=== PATIENT | female | born 1945 | race Caucasian/White ===

== ENCOUNTER 2017-04-15 11:41 | Outpatient (CLI) | payer MEDICARE | END 2017-04-15 11:42 | disposition home or self-care (01) | LOC: LAB.WCP 11:41 | PROVIDERS: ATTEND Family Medicine | DX: R60.9 Edema, unspecified (principal); I48.0 Paroxysmal atrial fibrillation; C90.00 Multiple myeloma not having achieved remission; D64.9 Anemia, unspecified; N28.9 Disorder of kidney and ureter, unspecified; E03.9 Hypothyroidism, unspecified | CPT/HCPCS: 36415; 84443 ==

== ENCOUNTER 2017-07-02 14:57 | Emergency (ER) | payer MEDICARE ==
[2017-07-02] MEDS ORDERED: MORPHINE 2 MG/ML SYRINGE IVP STA (15:31)
[2017-07-02] MEDS ORDERED: diazePAM INJ 5 MG/ML SYRINGE IVP STA (15:31)
--- NOTE | 2017-07-02 15:32 | ED Physician Documentation ---
PD HPI CHEST PAIN - Stated complaint Stated Complaint: R SIDE HEAD/NECK PX - Chief complaint Chief Complaint: Cardiac - History obtained from History obtained from: Patient, Family () - History of Present Illness Timing - onset: Other (71-year-old woman under maintenance therapy for history of multiple myeloma, also a history of mastocytosis well-controlled with antihistamines at night. Yesterday after weeding in the garden for about an hour she developed some upper back pain which overnight went up into her neck and she developed pain with turning of her head. It became worse and she started to worry about a cardiac etiology. There is no associated chest pain, trouble breathing, nausea, or sweats. No pedal edema, calf pain, or recent travel.) Review of Systems Ten Systems: 10 systems reviewed and negative Constitutional: reports: Myalgias. 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 Neuro: Other HEENT: Other - Present Medications Home Medications: Ambulatory Orders Medication Instructions Recorded Confirmed Ascorbic Acid [Vitamin C] 500 mg PO DAILY 12/27/12 07/02/17 Aspirin [Aspir 81] 81 mg PO DAILY 12/27/12 07/02/17 Cetirizine HCl [Zyrtec] 10 mg PO DAILY PRN 12/27/12 07/02/17 Cholecalciferol (Vitamin D3) 1,000 unit PO DAILY 12/27/12 07/02/17 [Vitamin D] Levothyroxine Sodium [Synthroid] 12 mcg PO DAILY 12/27/12 07/02/17 Montelukast Sodium [Singulair] 10 mg PO DAILY 12/27/12 07/02/17 Ranitidine HCl [Zantac] 150 mg PO DAILY 12/27/12 07/02/17 Biotin 5,000 mg PO DAILY 01/05/13 07/02/17 Calcium Citrate 1,000 mg PO DAILY 01/05/13 07/02/17 Lenalidomide [Revlimid] 15 mg PO DAILY 06/16/14 07/02/17 Niacin 100 mg PO DAILY 11/21/14 07/02/17 oxyCODONE ER [OxyCONTIN] 10 mg PO DAILY PRN 01/16/15 07/02/17 Pyridoxine [Vitamin B-6] 100 mg PO DAILY 03/13/15 07/02/17 Citalopram [CeleXA] 1 tab PO DAILY 07/10/15 07/02/17 Cyclobenzaprine [Flexeril] 10 mg PO TID PRN #20 tablet 07/02/17 oxyCODONE [Roxicodone] 5 mg PO Q4-6H PRN #15 tablet 07/02/17 - Allergies Allergies/Adverse Reactions: Allergies Allergy/AdvReac Type Severity Reaction Status Date / Time No Known Drug Allergies Allergy Verified 07/02/17 15:08 - Social History Smoking Status: Never smoker PD ED PE NORMAL - Vitals Vital signs reviewed: Yes - General General: Alert and oriented X 3, Other (Slightly anxious but not in pain) - HEENT HEENT: PERRL, EOMI - Neck Neck: Other (Distinct tenderness to the paracervical musculature and difficulty with rotation of the neck, but not flexion or extension.) - Cardiac Cardiac: RRR, No murmur - Respiratory Respiratory: No respiratory distress, Clear bilaterally - Abdomen Abdomen: Soft, Non tender - Derm Derm: Normal color, Warm and dry - Extremities Extremities: No edema, No calf tenderness / cord - Neuro Neuro: Alert and oriented X 3, Normal speech - Psych Psych: Normal mood, Normal affect Results - Vitals Vitals: Vital Signs - 24 hr 07/02/17 07/02/17 15:05 16:47 Temperature 37.3 C Heart Rate 81 71 Respiratory 18 18 Rate Blood Pressure 152/72 H 153/74 H O2 Saturation 95 99 Oxygen O2 Source Room air - EKG (time done) 1518 Rate: Rate (enter#) (81) Rhythm: NSR [place]: Normal Intervals: Normal HI QRS: Normal Ischemia: Normal ST segments Computer interpretation: Agree with computer - Labs Labs: Laboratory Tests 07/02/17 07/02/17 07/02/17 15:36 15:36 15:36 WBC 6.0 RBC 4.24 Hgb 12.9 Hct 38.1 MCV 89.9 MCH 30.3 MCHC 33.7 RDW 15.8 H Plt Count 133 MPV 9.6 Neut # 4.4 Lymph # 0.8 L [place] # 0.7 Eos # 0.0 Baso # 0.0 Absolute Nucleated RBC 0.00 Nucleated RBC % 0.0 Sodium 137 Potassium 3.7 Chloride 102 Carbon Dioxide 26 Anion Gap 9.0 BUN 14 Creatinine 1.0 Estimated GFR (MDRD) 54 L Glucose 114 H Calcium 8.8 Total Bilirubin 0.4 AST 20 ALT 21 Alkaline Phosphatase 60 Troponin I < 0.04 Total Protein 7.0 Albumin 4.0 Globulin 3.0 Albumin/Globulin Ratio 1.3 Lipase 18 L - Rads (name of study) CT Chest Angio Radiology: EMP read contemporaneously (Negative with the exception of likely atelectasis and chronic old fractures of T11 and L1.) PD MEDICAL DECISION MAKING - ED course ED course: 71-year-old woman with upper back and neck pain, most consistent with a muscular skeletal etiology which she is concerned for vascular issue, her EKG is nonischemic and her troponin is negative. This was followed by a CT pulmonary angiogram given the history of cancer, this was also negative for acute disease. Departure - Departure Disposition: 01 Home, Self Care Clinical Impression: Atypical chest pain, Upper back pain Condition: Good Record reviewed to determine appropriate education?: Yes Instructions: ED Neck Back Pain General Prescriptions: Cyclobenzaprine [Flexeril] 10 mg PO TID PRN #20 tablet PRN Reason: Spasms oxyCODONE [Roxicodone] 5 mg PO Q4-6H PRN #15 tablet PRN Reason: Pain Comments: Call your doctor to arrange a follow-up appointment, make the next available appointment. In the interim, return anytime if worse or if new symptoms develop. Your blood pressure was elevated today on check into the emergency department. This does not mean that you have hypertension, it is a common phenomenon to come to the emergency department and have elevated blood pressure. I recommend that you see your primary care physician within the week to have it rechecked when you are feeling better. Do not drink or drive while taking narcotic pain medication. Note that many narcotic pain relievers also contain Tylenol/acetaminophen. Please ensure that your total dose of acetaminophen from all sources does not exceed 3 g (3000 mg) per day. You may get constipated while on this medication. Take a stool softener such as Colace twice a day while you are on it. Also add an [id number] laxative such as senna or MiraLAX on any day that you do not have a bowel movement. If you received a narcotic pain medication or sedative while in the emergency department, do not drive for the next 24 hours.
[2017-07-02 15:41] LABS: BASOPHILS % (AUTO) 0.5 %; EOSINOPHILS % (AUTO) 0.4 %; HCT - HEMATOCRIT 38.1 % (37.0-47.0); HGB - HEMOGLOBIN 12.9 g/dL (12.0-16.0); LYMPHOCYTES # (AUTO) 0.8 10^3/uL (1.5-3.5); LYMPHOCYTES % (AUTO) 13.3 %; MEAN CORPUSCULAR HEMOGLOBIN 30.3 pg (27.0-31.0); MEAN CORPUSCULAR HGB CONC 33.7 g/dL (32.0-36.0); MEAN CORPUSCULAR VOLUME 89.9 fL (81.0-99.0); MEAN PLATELET VOLUME 9.6 fL (7.9-10.8); MONOCYTES # (AUTO) 0.7 10^3/uL (0.0-1.0); MONOCYTES % (AUTO) 12.4 %; NEUTROPHILS # (AUTO) 4.4 10^3/uL (1.5-6.6); NEUTROPHILS % (AUTO) 73.4 %; RED BLOOD COUNT 4.24 10^6/uL (4.20-5.40); RED CELL DISTRIBUTION WIDTH 15.8 % (12.0-15.0)
[2017-07-02] MEDS ORDERED: LORazepam 2 MG/ML SYRINGE IVP STA (15:52)
[2017-07-02] MEDS ORDERED: MORPHINE 2 MG/ML SYRINGE ONE (15:56)
[2017-07-02 15:58] LABS: ALBUMIN/GLOBULIN RATIO 1.3 (1.0-2.2); BILIRUBIN,TOTAL 0.4 mg/dL (0.2-1.0); CALCIUM 8.8 mg/dL (8.5-10.3); POTASSIUM 3.7 mmol/L (3.5-5.0)
[2017-07-02] MEDS ORDERED: LORazepam 2 MG/ML SYRINGE ONE (16:02)
[2017-07-02] MEDS ORDERED: IOPAMIDOL-300 100 ML VIAL ONE (16:12)
[2017-07-02] MEDS ORDERED: IOPAMIDOL-300 100 ML VIAL IVP ONE (16:36)
[2017-07-02] MEDS ORDERED: HYDROmorphone 1 MG/ML SYRINGE IVP STA (16:37)
[2017-07-02] MEDS ORDERED: HYDROmorphone 1 MG/ML SYRINGE ONE (16:48)
--- NOTE | 2017-07-02 16:52 | CT Preliminary Report ---
Exam: CT CHEST ANGIO (PE) IMPRESSION: 1. Negative for pulmonary embolism. 2. Bibasilar linear densities which are likely atelectasis. 3. Degenerative disease of T1 -T2. Probably old fractures of T11 and L1. Unchanged since 05/26/2017 [facility] SITE ID: [id number]
--- NOTE | 2017-07-02 16:54 | CT Report ---
EXAM: CT ANGIOGRAM CHEST EXAM DATE: 07/02/2017 04:37 PM. CLINICAL HISTORY: Chest/back pain. COMPARISON: Chest x-ray 05/26/2017. TECHNIQUE: Routine helical imaging was performed through the chest in the pulmonary arterial phase. I V Contrast: 70 cc Isovue-370 IV. Reconstructions: Coronal 3-D MIP reconstructions.Sagittal and elder l. In accordance with CT protocol optimization, one or more of the following dose reduction techniques w ere utilized for this exam: automated exposure control, adjustment of mA and/or KV based on patient s ize, or use of iterative reconstructive technique. FINDINGS: Pulmonary Arteries: Diagnostic quality: Adequate through the segmental arteries. No evidence for acute or chronic pulmona ry emboli. The main pulmonary artery is normal in size. Lungs/Pleura: There are bilateral lower lobe linear and groundglass densities. There is no consolidat ion. No pulmonary mass or suspicious pulmonary nodule. Negative for a central endobronchial obstructi ng lesion. No pleural effusion. Mediastinum: Heart size is normal. No pericardial effusion. There is no mediastinal or hilar lymphade nopathy. Thoracic Aorta: No thoracic aortic aneurysm or dissection. Upper Abdomen: There is dependent sludge or gallstones in the gallbladder without surrounding inflamm ation. Other: There is focal bony sclerosis at the T1-T2 level of the spine. There are probably old T11 and L1 compression fractures. IMPRESSION: 1. Negative for pulmonary embolism. 2. Bibasilar linear densities which are likely atelectasis. 3. Degenerative disease of T1 -T2. Probably old fractures of T11 and L1. Unchanged since 05/26/2017 [facility] Referring Provider Line: [phone] SITE ID: [id number]
[2017-07-02 17:18] VITALS: BP 137/68
== END 2017-07-02 17:17 | disposition home or self-care (01) ==
LOC: ED 14:57
DX: R07.89 Other chest pain (principal); M54.6 Pain in thoracic spine; R03.0 Elevated blood-pressure reading, without diagnosis of hypertension; Z85.89 Personal history of malignant neoplasm of other organs and systems; E03.9 Hypothyroidism, unspecified; M19.90 Unspecified osteoarthritis, unspecified site; Z79.82 Long term (current) use of aspirin
CPT/HCPCS: 36415; 71275; 80053; 83690; 84484; 85025; 93005; 96374; 96375; 99283; 99285; J1170; J2060; J2270; Q9967

== ENCOUNTER 2017-09-02 15:22 | Outpatient (CLI) | payer MEDICARE ==
--- NOTE | 2017-09-03 14:40 | Mammography Report ---
SCREENING MAMMOGRAM: 09/02/2017 CLINICAL INDICATION: A 72-year-old for screening. COMPARISON: 04/2015, 10/2013, 09/2013, 06/2009, 06/2008 TECHNIQUE: Routine CC and MLO projections were obtained of the breasts. FINDINGS: The breasts again demonstrate scattered fibroglandular densities bilaterally. Asymmetric parenchyma in the right upper inner posterior breast is stable. Coarse, typically benign calcifications are present, no suspicious masses, clustered microcalcifications, or regions of architectural distortion are identified. IMPRESSION: BENIGN FINDINGS. RECOMMENDATIONS: ROUTINE ANNUAL SCREENING UNLESS OTHERWISE CLINICALLY INDICATED. BIRADS CATEGORY 2 - BENIGN FINDINGS. STANDARD QUALIFYING STATEMENTS: 1. This examination was reviewed with the aid of Computer-Aided Detection (CAD) . 2. A negative or benign imaging report should not delay biopsy if clinically suspicious findings are present. Consider surgical consultation if warranted. More than 5 % of cancers are not identified by imaging. 3. Dense breasts may obscure an underlying neoplasm. TD: 09/03/2017 14:14 LEANDRA
== END 2017-09-02 15:23 | disposition home or self-care (01) ==
LOC: DI 15:22
PROVIDERS: ATTEND Family Medicine
DX: Z12.31 Encounter for screening mammogram for malignant neoplasm of breast (principal)
CPT/HCPCS: 77067

== ENCOUNTER 2018-05-07 08:00 | Outpatient (CLI) | payer MEDICARE ==
[2018-05-07 19:39] LABS: THYROID STIMULATING HORMONE 6.29 uIU/mL (0.34-5.60)
[2018-05-07 22:37] LABS: FREE T4 (FREE THYROXINE) 1.13 ng/dL (0.58-1.64)
== END 2018-05-07 08:01 | disposition home or self-care (01) ==
LOC: LAB.WCP 08:00
PROVIDERS: ATTEND Family Medicine
DX: E03.9 Hypothyroidism, unspecified (principal)
CPT/HCPCS: 36415; 84439; 84443

== ENCOUNTER 2018-05-17 12:55 | Outpatient (CLI) | payer MEDICARE | END 2018-05-17 12:56 | disposition home or self-care (01) | LOC: DI 12:55 | PROVIDERS: ATTEND Family Medicine | DX: R00.2 Palpitations (principal); I48.0 Paroxysmal atrial fibrillation; I51.9 Heart disease, unspecified; I34.0 Nonrheumatic mitral (valve) insufficiency; I51.7 Cardiomegaly | CPT/HCPCS: 93306 ==

== ENCOUNTER 2019-11-01 13:15 | Outpatient (CLI) | payer MEDICARE ==
[2019-11-01 14:11] LABS: FREE T3 3.02 pg/mL (2.5-3.9)
== END 2019-11-01 13:16 | disposition home or self-care (01) ==
LOC: LAB 13:15
PROVIDERS: ATTEND Family Medicine
DX: E03.9 Hypothyroidism, unspecified (principal)
CPT/HCPCS: 36415; 84443; 84481

== ENCOUNTER 2020-01-06 11:05 | Outpatient (CLI) | payer MEDICARE | END 2020-01-06 11:06 | disposition home or self-care (01) | LOC: DI 11:05 | PROVIDERS: ATTEND Family Medicine | DX: I34.0 Nonrheumatic mitral (valve) insufficiency (principal); I27.20 Pulmonary hypertension, unspecified; I51.7 Cardiomegaly | CPT/HCPCS: 93306 ==

== ENCOUNTER 2020-01-17 12:49 | Outpatient (CLI) | payer MEDICARE ==
--- NOTE | 2020-01-17 14:01 | DEXA Report ---
Reason: POST MENOPAUSAL Procedure Date: 01/17/2020 Accession Number: [id number] / [id number] Procedure: DEX - Dexa Spine and/or Hip CPT Code: Final Report FULL RESULT: PROCEDURE: Dexa Spine and/or Hip INDICATIONS: POST MENOPAUSAL TECHNIQUE: Dual energy x-ray absorptiometry (DXA) was performed on a [employer] Discovery System. Regions measured are the AP Spine, femoral neck, and if needed forearm. COMPARISON: None. FINDINGS: Lumbar Spine: Bone Mineral Density 1.276 g/cm/cm,T score 0.8, normal Left Hip: Bone Mineral Density 0.810 g/cm/cm,T score -1.6, osteopenia Left Femoral Neck: Bone Mineral Density 0.775 g/cm/cm, T score -1.9, osteopenia (T score greater or equal to -1.0: NORMAL) (T score from -1.1 to -2.4: OSTEOPENIA) (T score less than or equal to -2.5 to: OSTEOPOROSIS) Impression: 1. Osteopenia within the left hip and femoral neck. Patients with diagnosis of osteoporosis or osteopenia should have regular bone mineral density assessment. For those eligible for Medicare, routine testing is allowed once every 2 years. Testing frequency can be increased for patients who have rapidly progressing disease or for those who are receiving medical therapy to restore bone mass. Reviewed by: Antonette Magaña MD on 01/17/2020 1:59 PM PDT Approved by: Antonette Magaña MD on 01/17/2020 1:59 PM PDT Station ID: [id number]
== END 2020-01-17 12:50 | disposition home or self-care (01) ==
LOC: DI 12:49
PROVIDERS: ATTEND Family Medicine
DX: M85.89 Other specified disorders of bone density and structure, multiple sites (principal)
CPT/HCPCS: 77080

== ENCOUNTER 2020-02-01 10:59 | Outpatient (CLI) | payer MEDICARE ==
[2020-02-01 11:26] LABS: BASOPHILS # (AUTO) 0.1 10^3/uL (0.0-0.1); BASOPHILS % (AUTO) 1.3 %; EOSINOPHILS # (AUTO) 0.1 10^3/uL (0.0-0.7); EOSINOPHILS % (AUTO) 1.8 %; HGB - HEMOGLOBIN 11.6 g/dL (12.0-16.0); LYMPHOCYTES # (AUTO) 0.7 10^3/uL (1.5-3.5); LYMPHOCYTES % (AUTO) 18.5 %; MEAN CORPUSCULAR HEMOGLOBIN 32.5 pg (27.0-31.0); MEAN CORPUSCULAR HGB CONC 33.3 g/dL (32.0-36.0); MEAN CORPUSCULAR VOLUME 97.5 fL (81.0-99.0); MONOCYTES # (AUTO) 0.4 10^3/uL (0.0-1.0); MONOCYTES % (AUTO) 10.4 %; NEUTROPHILS # (AUTO) 2.6 10^3/uL (1.5-6.6); NEUTROPHILS % (AUTO) 67.7 %; PLT - PLATELET COUNT 51 10^3/uL (130-450); RED BLOOD COUNT 3.57 10^6/uL (4.20-5.40); RED CELL DISTRIBUTION WIDTH 16.2 % (12.0-15.0); WHITE BLOOD COUNT 3.8 x10^3/uL (4.8-10.8)
[2020-02-01 11:32] LABS: CALCIUM 8.4 mg/dL (8.5-10.3); CREATININE 1.2 mg/dL (0.4-1.0)
[2020-02-01 12:11] LABS: CREATININE,URINE 30.2 mg/dL; PROTEIN/CREATININE RATIO,URINE 0.2 (<=0.2)
--- NOTE | 2020-02-01 14:42 | XRAY Report ---
PROCEDURE: Chest 2 View X-Ray INDICATIONS: RAY TECHNIQUE: 2 view(s) of the chest. COMPARISON: Chest x-ray, 05/25/2018. FINDINGS: Surgical changes and devices: None. Lungs and pleura: Mild bibasilar interstitial prominence. No pleural effusions or pneumothorax. Lanie gs are clear. Mediastinum: Mediastinal contours are normal. Heart size is normal. Bones and chest wall: There are compression fractures, severe at T11 and moderate at L1, unchanged c ompared to 05/25/2018. No suspicious bony abnormalities. Soft tissues appear unremarkable. IMPRESSION: 1. Mild bilateral interstitial prominence. 2. Severe compression fracture of T11 and moderate compression fracture of L1. Reviewed by: Beckie Pagan MD on 02/01/2020 2:41 PM PDT Approved by: Beckie Pagan MD on 02/01/2020 2:41 PM PDT Station ID: [id number]
== END 2020-02-01 11:00 | disposition home or self-care (01) ==
LOC: LAB 10:59 → DI 11:00
PROVIDERS: ATTEND Internal Medicine Cardiovascular Disease
DX: R91.8 Other nonspecific abnormal finding of lung field (principal); M48.54XA Collapsed vertebra, not elsewhere classified, thoracic region, initial encounter for fracture; M48.56XA Collapsed vertebra, not elsewhere classified, lumbar region, initial encounter for fracture; R06.09 Other forms of dyspnea; I42.8 Other cardiomyopathies; Z20.828 Contact with and (suspected) exposure to other viral communicable diseases
CPT/HCPCS: 36415; 71046; 80048; 81599; 82570; 84156; 85025

== ENCOUNTER 2020-02-10 11:36 | Outpatient (CLI) | payer MEDICARE ==
[2020-02-10 12:03] LABS: CALCIUM 8.9 mg/dL (8.5-10.3); CREATININE 1.6 mg/dL (0.4-1.0)
== END 2020-02-10 11:37 | disposition home or self-care (01) ==
LOC: LAB 11:36
PROVIDERS: ATTEND Internal Medicine Cardiovascular Disease
DX: R06.09 Other forms of dyspnea (principal)
CPT/HCPCS: 36415; 80048

== ENCOUNTER 2020-03-25 19:41 | Outpatient (CLI) | payer MEDICARE | END 2020-03-25 19:42 | disposition home or self-care (01) | LOC: SC 19:41 | PROVIDERS: ATTEND Internal Medicine Pulmonary Disease | DX: I48.0 Paroxysmal atrial fibrillation (principal); G47.61 Periodic limb movement disorder | CPT/HCPCS: 95810 ==

== ENCOUNTER 2020-04-04 09:51 | Outpatient (CLI) | payer MEDICARE ==
--- NOTE | 2020-04-04 10:34 | SLEEP CARE CONSULTATION ---
Information from patient questionnaire entered by Marianela Laughlin. I have reviewed and concur with the information entered by Marianela Laughlin. This document represents the service I personally performed and the decisions made by , Gianna Patel ARNP. History of Present Illness Service Date and Time: 04/04/2020 09 Initial [place] Sleepiness Scale score: 5 (in 2019) Additional HPI information: ROLDAN HAMMOND returns with partner for follow up and results of the recently performed polysomnography. The patient was informed of the following findings: Patient does not have significant sleep disordered breathing non-supine and has severe PLMS that does cause sleep fragmentation. I explained the pathophysiology behind obstructive sleep apnea. Patient does not have sleep apnea and was advised how weight gain could increase the risk of developing sleep apnea in the future. Patient counseled not drink alcohol less than 4 hours before bedtime as it can increase snoring and apnea. Patient was cautioned about risks of drowsy driving until sleepiness symptoms resolve. Patient denies drowsy driving. Sleep Study - Results Type of Sleep Study: Polysomnography Polysomnography/Home Sleep Study results: IMPRESSION: The quality of the study is good. The patient had slightly reduced sleep efficiency due to a prolonged awakening near the end of the study.. The sleep architecture was abnormal for sleep fragmentation and reduced amount of time spent in REM sleep. Respiratory monitoring showed no significant sleep disordered breathing (AHI = 2.7) or hypoxia (jared oxygen saturation of 88% and only 0.4% to the total sleep time was spent with oxygen saturation below 90%). The patient did not sleep supine during this study (supine AHI = 0.0; nonsupine = 2.67). Snore was infrequent and light in intensity. There was severe periodic leg movement of sleep contributing to the sleep fragmentation.. Cardiac rhythm was sinus rhythm with frequent paroxysmal atrial fibrillation. No abnormal behavior (parasomnia) observed during the night. CONCLUSIONS and RECOMMENDATIONS: 1. Atrial fibrillation - ICD I48.91. Recommend further workup and treatment as appropriate. 2. Periodic leg movement (ICD G47.61), severe, treatment may be indicated. Clinical correlation advised. Allergies and Home Medications Drug allergies reviewed: Yes (NKDA) Home medication list reviewed: Yes (stopped lanolinamide; switching to 3 drug combo for myeloma) Review of Systems Review of systems same as previous: Yes (no changes) Physical Exam Heart Rate: 54 O2 Saturation: 97 Height: 5 ft 3 in Weight: 172 lb Body Mass Index: 30.4 BMI Classification: Obese Impression and Plan 1. Periodic limb movement, severe, that did fragment patients sleep. Periodic limb movement of sleep (PLMS) is characterized by episodes of repetitive limb movements that occur during sleep and usually involve the lower limbs. The etiology is unknown but can be associated with restless leg syndrome (RLS), neuropathy, spinal cord diseases, kidney disease, rheumatological disorders, narcolepsy, obstructive sleep apnea, and REM sleep behavior disorder. Other factors that can increase PLMS and/or RLS are heredity and iron deficiency as reflected by a low serum ferritin level below 50 to 75mcg / L. Several medications can precipitate or aggravate PLMS such as selective serotonin re- uptake inhibitor antidepressants, tricyclic antidepressants, lithium, and dopamine receptor antagonists with the exception of bupropion. Caffeine can also aggravate PLMS and should be avoided. Sleep hygiene methods can also improve sleep as well as lifestyle changes such as regular exercise. Patient was advised that further evaluation is indicated. 2. Atrial Fibrillation. Patient has history and is on Eliquis. Patient was not found to have significant sleep disordered breathing while sleeping non-supine during her study. She states she never sleeps on her back. She is to talk to her database programmer with findings of negative sleep apnea non-supine and to see if she should repeat study with some time supine. Patient is on chemotherapy for multiple myeloma and feels she has enough on her plate that trying another study at this time. She will discuss with database programmer at next appointment to get their recommendations on further testing. I advised her that she may call back if she decides to go ahead with sleep study on her back for further orders. * Attempt to lose weight * Follow up with PCP on PLMS due to severity and fragmented sleep * Follow up with database programmer on study results for their recommendations * The patient is cautioned about driving until sleepiness is completely resolved. * Return as needed for increase in symptoms, worsening or change in symptoms. Visit Type: In Office Time Spent with Patient (minutes): 20 Provider Statement: I spent 100% of the Face to Face Visit with the patient with greater than 50% spent counseling the patient and coordination of care.
== END 2020-04-04 09:52 | disposition home or self-care (01) ==
LOC: SC 09:51
PROVIDERS: ATTEND Nurse Practitioner Family
DX: G47.61 Periodic limb movement disorder (principal); I48.91 Unspecified atrial fibrillation; E66.9 Obesity, unspecified; Z68.30 Body mass index [BMI] 30.0-30.9, adult
CPT/HCPCS: 99213; G0463; 99212

== ENCOUNTER 2020-04-18 11:37 | Outpatient (CLI) | payer MEDICARE | END 2020-04-18 11:38 | disposition home or self-care (01) | LOC: LAB 11:37 | PROVIDERS: ATTEND Surgery | DX: Z01.812 Encounter for preprocedural laboratory examination (principal); Z20.828 Contact with and (suspected) exposure to other viral communicable diseases; C90.00 Multiple myeloma not having achieved remission ==

== ENCOUNTER 2020-04-20 06:27 | Day surgery (SDC) | payer MEDICARE ==
[2020-04-20] MEDS ORDERED: MIDAZOLAM 2 MG/2 ML VIAL IVP ONE (06:28)
[2020-04-20] MEDS ORDERED: PROPOFOL 200 MG/20 ML VIAL IVP ONE (06:28)
[2020-04-20] MEDS ORDERED: fentaNYL 100 MCG/2 ML VIAL IVP ONE (06:28)
[2020-04-20] MEDS ORDERED: CEFAZOLIN SODIUM IN 0.9 % NACL 2 GM/100 ML BAG IV ONE (06:29)
[2020-04-20] MEDS ORDERED: LACTATED RINGERS 1,000 ML IV ONE ×2 (06:37→08:25)
--- NOTE | 2020-04-20 06:55 | ANESTHESIA ---
Pre-Anesthesia VS, & Labs - Diagnosis Multiple Myeloma - Procedure Portacath placement Vital Signs: Temp Pulse Resp BP Pulse Ox 36.6 C 81 16 130/59 L 100 04/20/20 06:45 04/20/20 06:45 04/20/20 06:45 04/20/20 06:45 04/20/20 06:45 Height: 5 ft 3 in Weight (kg): 75.6 kg Body Mass Index: 29.5 BMI Classification: Overweight - Is Patient ?: No Home Medications and Allergies Ascorbic Acid [Vitamin C] 500 mg PO DAILY 12/27/12 Cetirizine HCl [Zyrtec] 10 mg PO DAILY 12/27/12 Cholecalciferol (Vitamin D3) [Vitamin D] 2,000 unit PO DAILY 12/27/12 Levothyroxine Sodium [Synthroid] 75 mcg PO DAILY 12/27/12 Montelukast Sodium [Singulair] 10 mg PO DAILY 12/27/12 Biotin 5,000 mg PO DAILY 01/05/13 Calcium Citrate 1,000 mg PO DAILY 01/05/13 oxyCODONE ER [OxyCONTIN] 5 mg PO PRN PRN 01/16/15 Citalopram [CeleXA] 20 tab PO DAILY 07/10/15 Apixaban [Eliquis] 5 mg PO BID 08/10/18 Metoprolol Succinate [Toprol Xl] 150 tab PO BID 08/10/18 Loperamide [Imodium] 3 cap PO DAILY PRN 11/09/18 Cholestyramine/Aspartame [Prevalite Packet] 5.5 gm PO DAILY 02/28/20 Furosemide [Lasix] 20 tab PO ONCE 02/28/20 Leothyronine 5 mcg PO DAILY 02/28/20 Allergies/Adverse Reactions: Allergies Allergy/AdvReac Type Severity Reaction Status Date / Time reef fish Allergy Anaphylaxis Uncoded 04/18/20 16:27 Anes History & Medical History - Anesthetic History Family history of Anesthesia Complications: Denies Family history of Malignant Hyperthermia: Denies - Medical History Cardiovascular: reports: Atrial fibrillation Pulmonary: reports: None Gastrointestinal: reports: None Urinary: reports: None Neuro: reports: Other ([facility] 2011) Musculoskeletal: reports: Osteoarthritis Endocrine/Autoimmune: reports: HyPOthyroidism Blood Disorders: reports: Anemia Skin: reports: None Smoking Status: Never smoker Psychosocial: reports: Depression - Surgical History General: Colonoscopy Eyes Ears Nose Throat (EENT): Other Gynecologic: Hysterectomy Neurologic: Other Orthopedic: Hip replacement, Arthroscopic surgery Plan Anesthesia Type: MAC Consent for Procedure(s) Verified and Reviewed: Yes Code Status: Attempt Resuscitation ASA classification: 3-Severe systemic disease Is this case an emergency?: No
[2020-04-20] MEDS ORDERED: ONDANSETRON 4 MG/2 ML VIAL IVP PRN (06:56)
[2020-04-20] MEDS ORDERED: MORPHINE 2 MG/ML CARPUJECT IVP PRN (06:56)
[2020-04-20] MEDS ORDERED: ePHEDrine 50 MG/ML VIAL IVP PRN (06:56)
[2020-04-20] MEDS ORDERED: ATROPINE ABBOJECT 1 MG/10 ML SYRINGE IVP PRN (06:56)
[2020-04-20] MEDS ORDERED: METOCLOPRAMIDE 10 MG/2 ML VIAL IVP PRN (06:56)
[2020-04-20] MEDS ORDERED: NALOXONE 0.4 MG/ML VIAL IVP PRN (06:56)
[2020-04-20] MEDS ORDERED: fentaNYL 100 MCG/2 ML VIAL IVP PRN (06:56)
[2020-04-20] MEDS ORDERED: HYDROmorphone 0.5 MG/0.5 ML SYRINGE IVP PRN (06:56)
[2020-04-20] MEDS ORDERED: LACTATED RINGERS 1,000 ML IV SCH (07:00)
[2020-04-20] MEDS ORDERED: LIDOCAINE 1% 50 ML MDV SUBQ ONE (08:15)
[2020-04-20] MEDS ORDERED: BUPIVACAINE 0.25% PF 10 ML VIAL SUBQ ONE (08:15)
[2020-04-20] MEDS ORDERED: oxyCODONE 5 MG TABLET PO PRN (08:24)
--- NOTE | 2020-04-20 08:30 | OPERATIVE REPORT ---
Operative Report - General Procedure Date: 04/20/20 Pre-Op Diagnosis: multiple myeloma Procedure Performed: left subclavian power port placement Post Op Diagnosis: same - Procedure Note Anesthesia Technique: Local, MAC Estimated Blood Loss (mL): 5 Findings: good placement and flow Complications: none
--- NOTE | 2020-04-20 08:43 | XRAY Report ---
PROCEDURE: OR C-Arm Procedure INDICATIONS: port placement TECHNIQUE: 2 intraoperative views COMPARISON: None. FINDINGS: Left chest port with the tip projecting in the lower SVC IMPRESSION: Left chest port with the tip projecting in the lower SVC. Reviewed by: Tommie Thayer MD on 04/20/2020 8:42 AM PDT Approved by: Tommie Thayer MD on 04/20/2020 8:42 AM PDT Station ID: [id number]
[2020-04-20 08:50] VITALS: BP 132/69
--- NOTE | 2020-04-20 10:47 | ANESTHESIA POST OP EVALUATION ---
Anesthesia Post Eval - Post Anesthesia Eval Vitals: Last Vital Signs Temp 36.5 C 04/20/20 08:48 Pulse 61 04/20/20 08:48 Resp 19 04/20/20 08:48 BP 132/69 H 04/20/20 08:48 Pulse Ox 99 04/20/20 08:48 CV Function Including HR & BP: positive: Stable Pain Control: positive: Satisfactory Nausea & Vomiting: positive: Negative Mental Status: positive: Baseline Respiratory Status: Airway Patent Hydration Status: Satisfactory Anesthesia Complications: positive: None
== END 2020-04-20 06:28 | disposition home or self-care (01) ==
LOC: SDS 06:27
PROVIDERS: ATTEND Surgery
DX: C90.00 Multiple myeloma not having achieved remission (principal); I48.91 Unspecified atrial fibrillation; E89.0 Postprocedural hypothyroidism
CPT/HCPCS: 36561; 77001; C1788; J0690; J7120

== ENCOUNTER 2020-06-18 16:29 | Emergency (ER) | payer MEDICARE ==
[2020-06-18] MEDS ORDERED: SODIUM CHLORIDE 0.9% 1,000 ML IV STA ×2 (16:55→17:30)
[2020-06-18 17:08] LABS: BASOPHILS % (AUTO) 0.2 %; EOSINOPHILS % (AUTO) 0.1 %; HGB - HEMOGLOBIN 10.8 g/dL (12.0-16.0); LYMPHOCYTES # (AUTO) 0.3 10^3/uL (1.5-3.5); LYMPHOCYTES % (AUTO) 3.1 %; MEAN CORPUSCULAR HEMOGLOBIN 30.9 pg (27.0-31.0); MEAN CORPUSCULAR VOLUME 96.3 fL (81.0-99.0); MEAN PLATELET VOLUME 13.4 fL (7.9-10.8); MONOCYTES # (AUTO) 0.8 10^3/uL (0.0-1.0); MONOCYTES % (AUTO) 7.6 %; NEUTROPHILS # (AUTO) 9.3 10^3/uL (1.5-6.6); PLT - PLATELET COUNT 126 10^3/uL (130-450); RED CELL DISTRIBUTION WIDTH 17.1 % (12.0-15.0); WHITE BLOOD COUNT 10.6 x10^3/uL (4.8-10.8)
[2020-06-18 17:20] LABS: ALBUMIN 3.6 g/dL (3.2-5.5); ALBUMIN/GLOBULIN RATIO 1.2 (1.0-2.2); BILIRUBIN,TOTAL 0.4 mg/dL (0.2-1.0); CALCIUM 8.9 mg/dL (8.5-10.3); CREATININE 2.1 mg/dL (0.4-1.0); TOTAL PROTEIN 6.6 g/dL (6.7-8.2)
--- NOTE | 2020-06-18 18:17 | XRAY Report ---
PROCEDURE: Femur 2V RT INDICATIONS: R hip and thigh pain, h/o femur fx, mult myeloma TECHNIQUE: 4 views of the femur were acquired. COMPARISON: None. FINDINGS: Bones: No fractures or dislocations. No suspicious bony lesions. Prior right total hip arthritic Soft tissues: No suspicious soft tissue calcifications or masses. IMPRESSION: No acute trauma to the right femur. Prior right total hip arthroplasty. Reviewed by: Chago Hewitt MD on 06/18/2020 6:15 PM PST Approved by: Chago Hewitt MD on 06/18/2020 6:15 PM PST Station ID: [id number]
--- NOTE | 2020-06-18 18:18 | XRAY Report ---
PROCEDURE: Hip w/Pelvis 2-3V RT INDICATIONS: R hip and thigh pain, h/o femur fx, mult myeloma TECHNIQUE: AP pelvis with lateral view(s) of the right hip(s). COMPARISON: None. FINDINGS: Bones: No fractures or dislocations. Prior right total hip arthroplasty Pelvic ring appears intact. No suspicious bony lesions. Soft tissues: The visualized bowel gas pattern is normal. No suspicious soft tissue calcifications. IMPRESSION: Prior right total hip arthroplasty, no trauma found to the pelvis, right hip or the visu alized left hip.. Reviewed by: Chago Hewitt MD on 06/18/2020 6:17 PM PST Approved by: Chago Hewitt MD on 06/18/2020 6:17 PM PST Station ID: [id number]
--- NOTE | 2020-06-18 18:52 | ED Physician Documentation ---
History of Present Illness - Stated complaint Stated Complaint: RIGHT LEG PX - Chief complaint Chief Complaint: General - History obtained from History obtained from: Patient - History of Present Illness Timing: Today Pain level max: 7 Pain level now: 4 - Additonal information Additional information: 74-year-old female presents to the emergency department with right hip and right leg pain. She states she has a history of multiple myeloma. She states several years ago she sustained a hip/femur fracture. She states that this took "3 to 4 months" to occur from the time her symptoms of pain started. She is concerned that she is going to develop another fracture. She took Percocet prior to arrival today. Noted to be hypotensive in triage. Worse with walking, better with rest. No fall, no trauma. 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 Neuro: Other HEENT: Other - Present Medications Home Medications: Ambulatory Orders Medication Instructions Recorded Confirmed Ascorbic Acid [Vitamin C] 500 mg PO DAILY 12/27/12 06/05/20 Cetirizine HCl [Zyrtec] 10 mg PO DAILY 12/27/12 06/05/20 Cholecalciferol (Vitamin D3) 2,000 unit PO DAILY 12/27/12 06/05/20 [Vitamin D] Levothyroxine Sodium [Synthroid] 75 mcg PO DAILY 12/27/12 06/05/20 Montelukast Sodium [Singulair] 10 mg PO DAILY 12/27/12 06/05/20 Biotin 5,000 mg PO DAILY 01/05/13 06/05/20 Calcium Citrate 1,000 mg PO DAILY 01/05/13 06/05/20 Citalopram [CeleXA] 20 tab PO DAILY 07/10/15 06/05/20 Apixaban [Eliquis] 5 mg PO BID 08/10/18 06/05/20 Metoprolol Succinate [Toprol Xl] 150 tab PO BID 08/10/18 06/05/20 Loperamide [Imodium] 3 cap PO DAILY PRN 11/09/18 06/05/20 Cholestyramine/Aspartame 5.5 gm PO DAILY 02/28/20 06/05/20 [Prevalite Packet] Furosemide [Lasix] 20 tab PO ONCE 02/28/20 06/05/20 Leothyronine 5 mcg PO DAILY 02/28/20 06/05/20 Acyclovir [Zovirax] 400 mg PO BID #180 tablet 04/11/20 06/05/20 Lidocaine/Prilocain 2.5% Cream 30 gm TOP DAILY PRN #1 tube 04/11/20 06/05/20 [Emla 2.5% Cream] Ondansetron HCl [Zofran] 4 mg PO TID PRN #30 tab 04/11/20 06/05/20 Prochlorperazine Maleate 10 mg PO Q6HR PRN #30 tab 04/11/20 06/05/20 [Compazine] Sulfamethoxazole/Trimethoprim 1 each PO DAILY #90 tablet 04/11/20 06/05/20 [Bactrim 400-80 mg Tablet] dexAMETHasone [Dexamethasone] 20 mg PO UD #20 tablet 04/11/20 06/05/20 methylPREDNISolone 20 mg PO UD #40 tablet 04/11/20 06/05/20 [Methylprednisolone] oxyCODONE/ACET 5/325 [Percocet 5 1 each PO Q6H PRN #15 tablet 04/20/20 06/05/20 mg/325 mg] Flecainide [Tambocar] 100 mg PO BID 06/05/20 06/05/20 - Allergies Allergies/Adverse Reactions: Allergies Allergy/AdvReac Type Severity Reaction Status Date / Time Fish Containing Products Allergy Severe Anaphylaxis Verified 06/18/20 16:45 - Social History Does the pt smoke?: No Smoking Status: Never smoker PD ED PE NORMAL - Vitals Vital signs reviewed: Yes - General General: Alert and oriented X 3, No acute distress - HEENT HEENT: Moist mucous membranes - Neck Neck: Supple, no meningeal sign - Derm Derm: Warm and dry - Extremities Extremities: No deformity, No tenderness to palpate, Normal ROM s pain, No edema, No calf tenderness / cord, Other (Normal examination of the right hip and femur. Full range of motion. She points to the posterior aspect of the right hip and proximal aspect of the right femur as to where she feels the pain.) - Neuro Neuro: Alert and oriented X 3 - Psych Psych: Normal mood, Normal affect Results - Vitals Vitals: Vital Signs - 24 hr 06/18/20 06/18/20 06/18/20 16:40 17:24 19:00 Temperature 36.9 C Heart Rate 67 79 72 Respiratory 18 21 20 Rate Blood Pressure 89/44 L 108/50 L 133/51 H O2 Saturation 95 95 98 Oxygen O2 Source Room air - Labs Labs: Laboratory Tests 06/18/20 06/18/20 16:56 16:56 WBC 10.6 RBC 3.50 L Hgb 10.8 L Hct 33.7 L MCV 96.3 MCH 30.9 MCHC 32.0 RDW 17.1 H Plt Count 126 L MPV 13.4 H Neut # (Auto) 9.3 H Lymph # (Auto) 0.3 L [place] # (Auto) 0.8 Eos # (Auto) 0.0 Baso # (Auto) 0.0 Absolute Nucleated RBC 0.00 Nucleated RBC % 0.0 Sodium 135 Potassium 4.9 Chloride 95 L Carbon Dioxide 24 Anion Gap 16.0 H BUN 28 H Creatinine 2.1 H Estimated GFR (MDRD) 23 L Glucose 108 H Calcium 8.9 Total Bilirubin 0.4 AST 34 ALT 14 Alkaline Phosphatase 80 Total Protein 6.6 L Albumin 3.6 Globulin 3.0 Albumin/Globulin Ratio 1.2 - Rads (name of study) Right hip and right femur x-rays Radiology: Prelim report reviewed, EMP read contemporaneously, See rad report PD MEDICAL DECISION MAKING - ED course Complexity details: reviewed results, re-evaluated patient, considered differential, d/w patient ED course: No acute findings on x-rays of the right hip and right femur. Patient is ambulating well. She did appear dehydrated, mild acute renal insufficiency. Given IV fluids. Blood pressure resume to normal. Likely that the dehydration coupled with the oxycodone caused her transient hypotension. No chest pain. No shortness of breath. Patient counseled regarding signs and symptoms for which I believe and urgent re-evaluation would be necessary. Patient with good understanding of and agreement to plan and is comfortable going home at this time This document was made in part using voice recognition software. While efforts are made to proofread this document, sound alike and grammatical errors may occur. Departure - Departure Disposition: 01 Home, Self Care Clinical Impression: Right hip pain, Dehydration, Acute renal insufficiency Condition: Good Instructions: ED Dehydration Follow-Up: Alberta Rebollar DO [Primary Care Provider] - Within 1 week Comments: Drink plenty of water at home. Return if you worsen. Follow-up with your doctor for further care. There are no significant abnormalities on your x-rays today. You do need to increase your fluid intake at home. Discharge Date/Time: 06/18/20 19:18
[2020-06-18 19:06] VITALS: BP 133/51
== END 2020-06-18 19:18 | disposition home or self-care (01) ==
LOC: ED 16:29
DX: M25.551 Pain in right hip (principal); N28.9 Disorder of kidney and ureter, unspecified; E86.0 Dehydration; I48.91 Unspecified atrial fibrillation; Z79.01 Long term (current) use of anticoagulants; Z96.649 Presence of unspecified artificial hip joint
CPT/HCPCS: 36415; 80053; 85025; 96360; 96361; 99284

== ENCOUNTER 2020-07-06 13:00 | Outpatient (CLI) | payer MEDICARE ==
--- NOTE | 2020-07-06 17:35 | CONSULTATION NOTE ---
Palliative Care Consultation - Referral Referring Provider: Dr. Ablerta Morales Time of Visit: [id number] Referral setting: [facility] [place] Referral Reason: Pain of neoplastic origin/Goals of Care / Relapsed Multiple Myeloma - Information Sources Records reviewed: Previous records reviewed History/Review of Systems obtained from: Patient, Family ( Bill) Exam limitations: Clinical condition (patient with STM deficits) - History of Present Illness Brief History of Present Illness: This is a 75-year-old woman who is having increased symptom burden, and concern regarding her relapsed multiple myeloma. Her PCP made a referral, in the context of exploring goals of care, weighing benefits and burdens of treatment, as well as for supportive care. Patient originally presented in June 2012 with a right hip fracture and plasmacytoma, and received Revlimid and tolerated this with very few side effects other than pancytopenias. She recently had progression, after 02/2020. She has known multiple myeloma IgA kappa type, and has been recently started on Velcade, daratumumab in 04/17/2020, and with Zometa support. Patient recently presented to the ED, with right leg pain, she reports this is been increasing over the last several weeks. She did get some relief with hydration, and use of oral pain medication. This is continue to fluctuate, including increased discomfort this a.m. 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 On exam patient's lungs are clear, she does get some breathlessness with ambulation, she does not have a cough. She does have support hose on, unclear the extent of the lower extremity edema, she does have dull pink over both sides right over left, but no localized areas of heat or redness at this point for concern of cellulitis or blood clot formation. She is had functional decline, is now dependent on a walker, this is related to mostly weakness. She does have ongoing tremors, worsening memory issues, and concern for quality of life issues as she is felt particularly fatigued and somewhat overwhelmed. Added to her complexity, is her chronic kidney disease stage III, known atrial fib with recent addition of flecainide, on eliquis, and fluctuating lower extremity edema. Patient reports she is also has a diagnosis of mastocytosis for which she is on 3 antihistamines. Medical/Surgical History - Past Medical History Cardiovascular: reports: Congestive heart failure, Atrial fibrillation Respiratory: reports: Shortness of breath Neuro: Tremors, Other ([facility];) Endocrine/Autoimmune: reports: HyPOthyroidism GI: reports: None : reports: Renal insuffiency HEENT: reports: Chronic vision loss, Chronic sinusitis Psych: reports: Depression Musculoskeletal: reports: Osteoarthritis, Fatigue Derm: reports: None MRSA Hx?: No - Past Surgical History General: reports: Colonoscopy, Other (portacath) Ortho: reports: Hip replacement, Arthroscopic surgery, Other (bone marrow biopsy) /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 Support System: She lives with her Randall, they have been for 56 years. They came to [facility] in 2006. They had lived on a boat 6 years, has done much sailing across the world, they came up from [place]. They do still have their son and daughter who are located in [place], as well as there 2 granddaughters. It has been difficult for them with the limitations imposed by the pandemic, have not been able to see their family, nor friends as far as social support. Family History - Family History Family History: Mother: (dad of MM complications), Cancer (uterine), Father: , Cancer, Sister: Family History Comment/Other: sister in auto accident in her 50's Medications/Allergies - Medications Home Medications: Ambulatory Orders Medication Instructions Recorded Confirmed Ascorbic Acid [Vitamin C] 500 mg PO DAILY 12/27/12 07/08/20 Cetirizine HCl [Zyrtec] 10 mg PO DAILY 12/27/12 07/08/20 Cholecalciferol (Vitamin D3) 2,000 unit PO DAILY 12/27/12 07/08/20 [Vitamin D] Levothyroxine Sodium [Synthroid] 75 mcg PO DAILY 12/27/12 07/08/20 Montelukast Sodium [Singulair] 10 mg PO DAILY 12/27/12 07/08/20 Biotin 5,000 mg PO DAILY 01/05/13 07/08/20 Calcium Citrate 1,000 mg PO DAILY 01/05/13 07/08/20 Citalopram [CeleXA] 20 tab PO DAILY 07/10/15 07/08/20 Apixaban [Eliquis] 5 mg PO BID 08/10/18 07/08/20 Metoprolol Succinate [Toprol Xl] 150 tab PO BID 08/10/18 07/08/20 Loperamide [Imodium] 2 mg PO DAILY PRN 11/09/18 07/08/20 Cholestyramine/Aspartame 5.5 gm PO DAILY 02/28/20 07/08/20 [Prevalite Packet] Furosemide [Lasix] 20 tab PO BID 02/28/20 07/08/20 Leothyronine 5 mcg PO DAILY 02/28/20 07/08/20 Acyclovir [Zovirax] 400 mg PO BID #180 tablet 04/11/20 07/09/20 Lidocaine/Prilocain 2.5% Cream 30 gm TOP DAILY PRN #1 tube 04/11/20 07/08/20 [Emla 2.5% Cream] Ondansetron HCl [Zofran] 4 mg PO TID PRN #30 tab 04/11/20 07/08/20 Prochlorperazine Maleate 10 mg PO Q6HR PRN #30 tab 04/11/20 07/08/20 [Compazine] Sulfamethoxazole/Trimethoprim 1 each PO DAILY #90 tablet 04/11/20 07/08/20 [Bactrim 400-80 mg Tablet] methylPREDNISolone 20 mg PO UD #40 tablet 04/11/20 07/08/20 [Methylprednisolone] Flecainide [Tambocar] 100 mg PO BID 06/05/20 07/08/20 oxyCODONE/ACET 5/325 [Percocet 5 1 each PO Q4HR PRN 07/08/20 07/08/20 mg/325 mg] dexAMETHasone [Decadron] 20 mg PO .WEEKLY 07/09/20 07/09/20 - Allergies Allergies/Adverse Reactions: Allergies Allergy/AdvReac Type Severity Reaction Status Date / Time Fish Containing Products Allergy Severe Anaphylaxis Verified 06/26/20 09:26 Review of Systems - Constitutional Constitutional: reports: Fatigue (worsening and severe this last week), Poor appetite. denies: Fever, Chills - Eyes Eyes: reports: Vision loss, Corrective lenses - Cardiovascular Cardiovascular: reports: Irregular heart rate, Edema, Exertional dyspnea, Decr. exercise tolerance. denies: Chest pain - Respiratory Respiratory: reports: SOB at rest, SOB with exertion - Gastrointestinal Gastrointestinal: reports: Diarrhea (improved), Good appetite. denies: Nausea, Reflux/heartburn - Genitourinary Genitourinary: reports: Frequency - Musculoskeletal Musculoskeletal: reports: Muscle aches, Stiffness, Limited range of motion, Muscle weakness, Assistive devices (using walker for ambulation) - Integumentary Integumentary: reports: Dryness, Other - Neurological Neurological: reports: General weakness, Memory problems (worsening; deferes to often), Abnormal gait - Psychiatric Psychiatric: reports: Depression, Anxiety - Endocrine Endocrine: reports: Hypothyroidism Physical Exam - Vital Signs Pulse Rate: 65 Respiratory Rate: 18 Blood Pressure: 102/50 - Physical Exam General Appearance: positive: No acute distress, Alert, Anxious Eyes Bilateral: positive: Normal inspection ENT: positive: No signs of dehydration Neck: positive: Trachea midline Cardiovascular: positive: Irregularly irregular Respiratory: positive: No respiratory distress, Breath sounds nml. negative: Wheezes, Rales, Rhonchi Abdomen: positive: Non-tender, Soft Skin: positive: Pallor, Dryness, Other (dull pink across shins; has support hose on; mild warmth but no localized area or erythema) Extremities: positive: Pedal edema (contained with support hose; inst on daily weight) Neurologic/Psychiatric: positive: Oriented x3, Mood/affect nml, Weakness, Flat affect, Other (mild word finding difficulties; noted STM deficits; defers to -aware of deficits) Palliative Care - POLST Patient has POLST: No Pain: Pain worsening, Location (RLE; worse this am; improved this afternoon; increase discomfort at night; using oxycodone for relief; present for few days- building) Tiredness/Fatigue: Severe (7-10) (surprsed as "week off " of chemo) Drowsiness/Sedation: Mild (1-3) Nausea: None Anorexia: None Dyspnea: Mild (1-3) Depression: Mild (1-3) Anxiety: Moderate (4-6) (wondering about benefits/burdens of tx; prognosis; more difficult with not able to come in for visits) Feelings of wellbeing/Perceived Quality of Life: Fair, Worsening Sleep: Variable sleep pattern Constipation: No Performance Status: Patient is newly dependent on her walker, unsteady gait, some of this is balance denies peripheral neuropathy. She does have decreased activity tolerance, needing more assistance. Is ambulatory in her home. - Palliative Care Discussion: Patient has been feeling poorly, she is quite frustrated in the context of wanting to understand where she stands in the trajectory of her disease process. Has not been able to participate in her last couple of appointments, patient does have short-term memory issues, and he feels like there is lots of questions today we would like to have answers to. We were talking about advanced directives, they would like to revisit these but would like to know in the context as best we know, her prognosis, if she cannot tolerate her treatment or this does not work what would be "Plan B", and if it is to be expected she will have continued decline. At this point in time quality of life is still acceptable, but she does perceive that it has been worse over the last several weeks. Bill does think they have both a POLST and 5 wishes, requested they locate these to be able to review at our next meeting. I agreed I would reach out to Dr. Ortiz or Nori Zarate PA-C to make sure they include him on a call when discussing information and what their questions are they would like answers to. Results - Lab Results Lab results reviewed: Yes Impression and Recommendations - Palliative Care Impression: This is a 75-year-old woman with relapsed multiple myeloma of IgA kappa type. She is currently receiving daratumumab, bortezomib, and dexamethasone. She has been feeling poorly, with increased weakness, increased right lower extremity pain, tremors, and worsening fatigue. Is also experienced exacerbation of ca rdiac status, with resulting peripheral edema and shortness of breath. She and her are feeling quite overwhelmed at this point in time, referral to palliative care provided by PCP for support. Recommendations/Counseling Done: 1. Lower extremity swelling. It is unclear exactly the extent for swelling, requested patient to weigh herself daily, she does have support hose on. She was instructed by her freezer laboratory technician to increase her furosemide 20 mg to twice daily, instructed to take second dose before 2:00 secondary to nocturia. She is also instructed to hold it if her blood pressure is less than 100, or hypotensive. Reviewed signs and symptoms to seek urgent care, with increased redness, this are discomfort. Will reevaluate at Thursday visit. 2. Acute on chronic pain. Patient experiencing right leg pain, back area, and mild pain left leg as well. Worsening with weight bearing and activity. Patient also experiencing increased tremors, though these are mostly upper extremity but without pain or discomfort. She denies peripheral neuropathy. Counseling provided regarding use of medication, she does get some relief with acetaminophen, instructed can use 2 tabs up to 3000 mg in 24 hours. Counseling provided regarding use of oxycodone 5 mg, can use half tab for mild pain, up to 2 tabs for severe pain or bedtime. Rx provided. 3. Anxiety. Patient is quite anxious with ongoing functional decline, cognitive deficits and short-term memory issues, as well as increasing symptom burden. Both she and her would like to feel less overwhelmed, and feel increased information regarding prognosis, and long-term plan for treatment. She had been maintained on Revlimid for long period of time, and is feeling with increased side effects concern for benefit versus burden. Counseling provided to normalize current concerns and anxieties. 4. Advanced care planning. ~Think they have advanced care planning documents, he will try and locate these for next visit. He has been quite frustrated is not of able to participate in her appointments with the pandemic restrictions. Reviewed he can dial in and listen during their appointments, will reach out to both Dr. Ortiz and Nori Zarate PA-C regarding their concerns as well as information they are seeking. Counseling provided regarding palliative versus hospice, the continuum of care, the role of supportive care in the context while currently getting treatment. Contact information provided. ADDENDUM: 07/09 Patient continues with swelling lower extremity edema, she lost about a pound with daily weights. She is still having a lot of pain and discomfort in her lower extremities, he not use the acetaminophen and oxycodone. She is keeping her legs elevated, trying to stay active, but continues to be challenged by the side effects. Time Spent: 75 minutes with greater than 50% of this done in counseling regarding goals of care, pain and symptom management, and coordination of care follow-up with cardiology, update to oncology.
== END 2020-07-06 13:01 | disposition home or self-care (01) ==
LOC: PC 13:00
PROVIDERS: ATTEND Nurse Practitioner Adult Health
DX: Z51.5 Encounter for palliative care (principal); R60.0 Localized edema; G89.3 Neoplasm related pain (acute) (chronic); F41.9 Anxiety disorder, unspecified; C90.02 Multiple myeloma in relapse; D47.09 Other mast cell neoplasms of uncertain behavior; N18.30 Chronic kidney disease, stage 3 unspecified; I48.91 Unspecified atrial fibrillation; Z79.899 Other long term (current) drug therapy; Z79.01 Long term (current) use of anticoagulants
CPT/HCPCS: 99205

== ENCOUNTER 2020-07-10 11:00 | Outpatient (CLI) | payer MEDICARE ==
--- NOTE | 2020-07-10 16:35 | CONSULTATION NOTE ---
Palliative Care Follow Up - Referral Referring Provider: Dr. Alberta Rebollar Time of Visit: Referral setting: [facility] Referral Reason: LE edema/LE pain/MM - Information Sources Records reviewed: Previous records reviewed History/Review of Systems obtained from: Patient Exam limitations: Clinical condition (patient with STM issues) - History of Present Illness Update Brief HPI Update: Please see 07/06 Consult for expanded HPI. This is a 75-year-old woman with increasing symptom burden related to side effects of her treatment for her relapsed multiple myeloma. She has had increased lower extremity pain, with also increasing lower extremity edema. She has been recently increased from Torsemide 20 to 40 mg related to lower extremity swelling. She has lost 1 or 2 pounds, and only mild improvement in her edema. This is challenged with balancing her chronic CKD stage III. She has been using the oxycodone 1-2 tabs, particularly at nighttime with some relief. She has had worsening cognitive decline over the last year, and functional decline over the last several weeks. On examination she still has some mild pedal edema, mostly in her calf area, does not appear worsening. There is no diffuse redness, there is still tenderness to touch. Patient denies peripheral neuropathy sharp shooting pains, but does describe poor sleep, restlessness and discomfort in her legs, and discouragement with fatigue. I suspect she does have some numbness and balance issues related to her past and current treatments. She does continue with weakness, has been less active as she is also been trying to elevate her legs. She and her have multiple questions regarding the "what next", she is awaiting follow-up with the oncologist, her Velcade has been put on hold. Past Medical History: Atrial fib with recent addition of flecainide made, Eliquis, mastocytosis, mild cognitive decline, CHF, hypothyroidism, chronic vision lies, chronic sinusitis, depression, osteoarthritis, fatigue Social History - Living Situation Living arrangement: At home Living Situation: With spouse/s.o. Support System: Patient just celebrated her 75th birthday, she lives with her Randall. They have been for 56 years. They came to [facility] in 2006. They have a son and daughter who are located in [place], and 2 granddaughters. It has been difficult for social support with the pandemic, they do have friends and community, but this is been limited as well. Medications/Allergies - Medications Home Medications: Ambulatory Orders Medication Instructions Recorded Confirmed Ascorbic Acid [Vitamin C] 500 mg PO DAILY 12/27/12 07/10/20 Cetirizine HCl [Zyrtec] 10 mg PO DAILY 12/27/12 07/10/20 Cholecalciferol (Vitamin D3) 2,000 unit PO DAILY 12/27/12 07/10/20 [Vitamin D] Levothyroxine Sodium [Synthroid] 75 mcg PO DAILY 12/27/12 07/10/20 Montelukast Sodium [Singulair] 10 mg PO DAILY 12/27/12 07/10/20 Biotin 5,000 mg PO DAILY 01/05/13 07/10/20 Calcium Citrate 1,000 mg PO DAILY 01/05/13 07/10/20 Citalopram [CeleXA] 20 tab PO DAILY 07/10/15 07/10/20 Apixaban [Eliquis] 5 mg PO BID 08/10/18 07/10/20 Metoprolol Succinate [Toprol Xl] 150 tab PO BID 08/10/18 07/10/20 Loperamide [Imodium] 2 mg PO DAILY PRN 11/09/18 07/10/20 Cholestyramine/Aspartame 5.5 gm PO DAILY 02/28/20 07/10/20 [Prevalite Packet] Furosemide [Lasix] 20 tab PO BID 02/28/20 07/10/20 Leothyronine 5 mcg PO DAILY 02/28/20 07/10/20 Acyclovir [Zovirax] 400 mg PO BID #180 tablet 04/11/20 07/10/20 Lidocaine/Prilocain 2.5% Cream 30 gm TOP DAILY PRN #1 tube 04/11/20 07/10/20 [Emla 2.5% Cream] Ondansetron HCl [Zofran] 4 mg PO TID PRN #30 tab 04/11/20 07/10/20 Prochlorperazine Maleate 10 mg PO Q6HR PRN #30 tab 04/11/20 07/10/20 [Compazine] Sulfamethoxazole/Trimethoprim 1 each PO DAILY #90 tablet 04/11/20 07/10/20 [Bactrim 400-80 mg Tablet] methylPREDNISolone 20 mg PO UD #40 tablet 04/11/20 07/10/20 [Methylprednisolone] Flecainide [Tambocar] 100 mg PO BID 06/05/20 07/10/20 oxyCODONE/ACET 5/325 [Percocet 5 1 each PO Q4HR PRN 07/08/20 07/10/20 mg/325 mg] dexAMETHasone [Decadron] 20 mg PO .WEEKLY 07/09/20 07/10/20 - Allergies Allergies/Adverse Reactions: Allergies Allergy/AdvReac Type Severity Reaction Status Date / Time Fish Containing Products Allergy Severe Anaphylaxis Verified 06/26/20 09:26 Review of Systems - Constitutional Constitutional: reports: Fatigue (worsening and severe this last week), Poor appetite. denies: Fever, Chills - Eyes Eyes: reports: Vision loss, Corrective lenses - Ears, Nose & Throat Ears, Nose & Throat: reports: Hearing loss, Nasal congestion - Cardiovascular Cardiovascular: reports: Irregular heart rate, Edema, Exertional dyspnea, Decr. exercise tolerance. denies: Chest pain - Respiratory Respiratory: reports: SOB at rest, SOB with exertion - Gastrointestinal Gastrointestinal: reports: Diarrhea (improved), Good appetite. denies: Nausea, Reflux/heartburn - Genitourinary Genitourinary: reports: Frequency - Musculoskeletal Musculoskeletal: reports: Muscle aches, Stiffness, Limited range of motion, Mus carmen weakness, Assistive devices (using walker for ambulation) - Integumentary Integumentary: reports: Dryness - Neurological Neurological: reports: General weakness, Memory problems (worsening; deferes to often), Abnormal gait - Psychiatric Psychiatric: reports: Depression, Anxiety - Endocrine Endocrine: reports: Hypothyroidism - All Other Systems All Other Systems: reports: Reviewed and negative Physical Exam - Vital Signs Temperature: 97.7 C Pulse Rate: 57 Respiratory Rate: 16 Blood Pressure: 110/45 - Physical Exam General Appearance: positive: No acute distress, Alert, Anxious Eyes Bilateral: positive: Normal inspection ENT: positive: No signs of dehydration Neck: positive: Trachea midline Respiratory: positive: No respiratory distress (but noted breathlessness with conversation) Abdomen: positive: Soft Skin: positive: Pallor, Dryness, Other (no discoloration or pink today; tender to touch calves) Extremities: positive: Pedal edema (appear improved from Thursday) Neurologic/Psychiatric: positive: Oriented x3, Mood/affect nml, Weakness, Flat affect, Other (mild word finding difficulties; noted STM deficits) Palliative Care - POLST Patient has POLST: No Pain: Pain unchanged, Location (calves) Tiredness/Fatigue: Moderate (4-6) Drowsiness/Sedation: Mild (1-3) Nausea: None Anorexia: None Dyspnea: Moderate (4-6) (with activity) Depression: Mild (1-3) Anxiety: Moderate (4-6) Feelings of wellbeing/Perceived Quality of Life: Fair, Worsening Sleep: Variable sleep pattern Constipation: No (often struggles with diarrhea; fci) Performance Status: She is having some progressive weakness, reports increased balance problems, is using and dependent on walker. 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 - Palliative Care Discussion: The plan is to facilitate for her build to be able to hear but the oncologist has this today. The plan is to have a family meeting next week, to further define and update her advance care planning documents. She is hoping to get some further information regarding prognosis and expectations as far as expected response from her current treatment. Will reach out and define this further if needed with Dr. Ortiz. Results - Lab Results Lab results reviewed: Yes Impression and Recommendations - Palliative Care Impression: This is a 75-year-old woman with relapsed multiple myeloma of IgA kappa type. She is currently receiving daratumumab and dexamethasone, Bartos mob is currently on hold as has been attributed to her worsening symptoms. Her peripheral edema remains problematic, but slightly improved. She continues with discomfort in her lower extremities, is currently managed with oxycodone. Palliative care continue to provide support for pain and symptom management and anticipatory guidance. Recommendations/Counseling Done: 1. Lower extremity swelling. Patient has been weighing daily, has lost about a pound. She is been instructed to keep her support hose on, though this does increase her discomfort. She has had her furosemide increased to twice daily, but instructed to hold for blood pressure less than 100 or feeling dizziness. Legs without any redness or warmth today, given the persistence of her lower extremity edema will continue furosemide for now. We will continue to monitor her kidney function closely. 2. Acute on chronic pain. Patient experiencing lower extremity pain, it worsens with weightbearing and activity, and particularly at night. Patient asking about "OxyContin", has been on it in the past, we discussed currently not on opioid equivalent doses to initiate. Suspect patient given her history of Revlimid, and current side effects of Velcade, is experiencing peripheral neuropathy, just does not identify it as such. May consider adding pregabalin particularly at bedtime, as patient does have also history of restless leg syndrome. 3. Anxiety. Patient remains quite anxious, with ongoing functional decline, she does experience short-term memory issues and finds this frustrating, as well as increasing symptom burden. They are still seeking information regarding prognosis, and long-term planning. Encouraged to follow-up with oncology, regarding their concerns and questions. 4. Advanced care planning. Patient has been requesting information from oncology, in preparation for advanced care planning document conversations. Visit plan to include her next week. Time Spent: 30 minutes with greater than 50% of this done in counseling regarding symptom management, coordination of care with oncology team, and anticipatory guidance
== END 2020-07-10 11:01 | disposition home or self-care (01) ==
LOC: PC 11:00
PROVIDERS: ATTEND Nurse Practitioner Adult Health
DX: Z51.5 Encounter for palliative care (principal); R60.0 Localized edema; I50.9 Heart failure, unspecified; N18.30 Chronic kidney disease, stage 3 unspecified; I13.0 Hypertensive heart and chronic kidney disease with heart failure and stage 1 through stage 4 chronic kidney disease, or unspecified chronic kidney disease; M79.605 Pain in left leg; M79.604 Pain in right leg; F41.9 Anxiety disorder, unspecified; C90.02 Multiple myeloma in relapse; Z79.01 Long term (current) use of anticoagulants
CPT/HCPCS: 99214

== ENCOUNTER 2020-07-24 13:00 | Outpatient (CLI) | payer MEDICARE ==
--- NOTE | 2020-07-24 16:11 | CONSULTATION NOTE ---
Palliative Care Follow Up - Referral Referring Provider: Dr. Alberta Rebollar Time of Visit: [id number] Referral setting: Home Referral Reason: Fatigue/Anxiety/MM/CHF/Goals of Care - Information Sources Records reviewed: Previous records reviewed History/Review of Systems obtained from: Patient, Family ( Randall) Exam limitations: Clinical condition (patient with STM deficits) - History of Present Illness Update Brief HPI Update: This is a 75-year-old woman with multiple myeloma, with recent exacerbation of symptoms most likely related to the side effects of her treatment. She continues with persistent fatigue, though has had decreasing hemoglobin currently 8.6. Her leg aches, muscle discomfort, and cramping have resolved. She has had improvement in her lower extremity edema, she does have CKD stage III, is currently taking furosemide 20 mg daily only. She is doing better with her pain, is able to manage with just intermittent acetaminophen, though still awakes in pain at times at night. She has had worsening cognitive decline over this last year, as well as functional decline over the last several weeks, is interested in physical therapy after discussion today. Past Medical History: A. fib with recent addition of flecainide, On Eliquis, mastocytosis, mild cognitive decline, CHF, hypothyroidism, chronic vision loss, chronic sinusitis, depression, osteoarthritis, and persistent fatigue, chronic diarrhea Social History - Living Situation Living arrangement: At home Living Situation: With spouse/s.o. Support System: She lives with her Randall, they have been quite isolated and somewhat overwhelmed by the restrictions of the pandemic. They have been unable to see her visit friends or family. Previously had been very active, it came to [facility] in 2006. They do have a son and daughter who are located in [place] and 2 granddaughters. Medications/Allergies - Medications Home Medications: Ambulatory Orders Medication Instructions Recorded Confirmed Ascorbic Acid [Vitamin C] 500 mg PO DAILY 12/27/12 07/24/20 Cetirizine HCl [Zyrtec] 10 mg PO DAILY 12/27/12 07/24/20 Cholecalciferol (Vitamin D3) 2,000 unit PO DAILY 12/27/12 07/24/20 [Vitamin D] Levothyroxine Sodium [Synthroid] 75 mcg PO DAILY 12/27/12 07/24/20 Montelukast Sodium [Singulair] 10 mg PO DAILY 12/27/12 07/24/20 Biotin 5,000 mg PO DAILY 01/05/13 07/24/20 Calcium Citrate 1,000 mg PO DAILY 01/05/13 07/24/20 Citalopram [CeleXA] 20 tab PO DAILY 07/10/15 07/24/20 Apixaban [Eliquis] 5 mg PO BID 08/10/18 07/24/20 Metoprolol Succinate [Toprol Xl] 150 tab PO BID 08/10/18 07/24/20 Loperamide [Imodium] 2 mg PO DAILY PRN 11/09/18 07/24/20 Furosemide [Lasix] 20 tab PO DAILY 02/28/20 07/24/20 Leothyronine 5 mcg PO DAILY 02/28/20 07/24/20 Acyclovir [Zovirax] 400 mg PO BID #180 tablet 04/11/20 07/24/20 Lidocaine/Prilocain 2.5% Cream 30 gm TOP DAILY PRN #1 tube 04/11/20 07/24/20 [Emla 2.5% Cream] Ondansetron HCl [Zofran] 4 mg PO TID PRN #30 tab 04/11/20 07/24/20 Prochlorperazine Maleate 10 mg PO Q6HR PRN #30 tab 04/11/20 07/24/20 [Compazine] Sulfamethoxazole/Trimethoprim 1 each PO DAILY #90 tablet 04/11/20 07/24/20 [Bactrim 400-80 mg Tablet] methylPREDNISolone 20 mg PO UD #40 tablet MDD after 04/11/20 07/24/20 [Methylprednisolone] daratumumab infusion Flecainide [Tambocar] 100 mg PO BID 06/05/20 07/24/20 oxyCODONE/ACET 5/325 [Percocet 5 1 each PO Q4HR PRN 07/08/20 07/24/20 mg/325 mg] dexAMETHasone [Decadron] 20 mg PO .WEEKLY 07/09/20 07/24/20 - Allergies Allergies/Adverse Reactions: Allergies Allergy/AdvReac Type Severity Reaction Status Date / Time Fish Containing Products Allergy Severe Anaphylaxis Verified 06/26/20 09:26 Review of Systems - Constitutional Constitutional: reports: Fatigue (persistent; some improvement off Velcade), Weakness, Poor appetite, Weight loss. denies: Fever, Chills - Eyes Eyes: reports: Vision loss, Corrective lenses - Ears, Nose & Throat Ears, Nose & Throat: reports: Hearing loss, Nasal congestion, Dry mouth - Cardiovascular Cardiovascular: reports: Edema (improved), Decr. exercise tolerance - Respiratory Respiratory: reports: SOB at rest, SOB with exertion. denies: Cough - Gastrointestinal Gastrointestinal: reports: Diarrhea (improved has longstanding at baseline; uses immodium daily), Early satiety. denies: Nausea, Reflux/heartburn - Genitourinary Genitourinary: reports: Frequency, Nocturia - Musculoskeletal Musculoskeletal: reports: Muscle aches, Stiffness, Limited range of motion, Muscle weakness, Joint pain (left knee), Assistive devices (using walker for ambulation) - Integumentary Integumentary: reports: Dryness - Neurological Neurological: reports: General weakness, Memory problems (worsening; deferes to often; offers up contradicting information at times), Abnormal gait - Psychiatric Psychiatric: reports: Depression, Anxiety - Endocrine Endocrine: reports: Hypothyroidism - Hematologic/Lymphatic Hematologic/Lymph: Anemia (worsening 8.6 07/10) - All Other Systems All Other Systems: reports: Reviewed and negative Physical Exam - Physical Exam General Appearance: positive: No acute distress, Alert Eyes Bilateral: positive: Normal inspection ENT: positive: No signs of dehydration Neck: positive: Trachea midline Respiratory: positive: No respiratory distress (but noted breathlessness with conversation) Abdomen: positive: Soft Skin: positive: Pallor, Dryness Extremities: positive: Pedal edema (appear improved) Neurologic/Psychiatric: positive: Oriented x3, Mood/affect nml, Weakness, Flat affect, Other (mild word finding difficulties; noted STM deficits) Palliative Care - POLST Patient has POLST: No Pain: Pain improved, Comment (using apap every 4-6 hours as needed with relief; difficulty descriping pain; denies in legs but then reports "all over") Tiredness/Fatigue: Severe (7-10) Drowsiness/Sedation: Moderate (4-6) (taking at least 2 naps a day;) Nausea: None Anorexia: Mild (1-3) Dyspnea: Moderate (4-6) (with activity) Depression: Moderate (4-6) Anxiety: Mild (1-3) Feelings of wellbeing/Perceived Quality of Life: Fair, Acceptable, Improved Sleep: Variable sleep pattern Constipation: No Performance Status: Patient admits to decreased muscle strength, is using the walker more consistently. This has been more persistent over the last few weeks. She reports she is able to move faster with a walker, she is still able to dress and manage her ADLs. Her does do most of the meal prep, patient does take frequent rest periods as well as naps. Does admit to functional decline. Is interested in physical therapy. - Palliative Care Discussion: Family meeting planned at home, to include Bill. They wanted to review their advance care planning documents. They had done them several years ago. They have filled out "5 wishes", we discussed in the context of living diaz, this is looking forward, certainly their circumstances have changed as of recent health problems. We did discuss in the context of important to have conversations as well as understand values that would be important if patient were to have an acute event as well as well long-term she would want for end-of-life. Counseling provided they do believe they have a DPOA with their legal documents, will obtain copy for ID M. Counseling provided regarding the role of the POLST, particularly in the context of patient wants DNR/DNI. Questions were answered, they will continue conversation, and we will complete at next visit.Patient still with multiple treatment options for her MM, but is quite frail, has had functional decline as well as cognitive and has multiple comorbidities. Results - Lab Results Lab results reviewed: Yes Impression and Recommendations - Palliative Care Impression: This is a 75-year-old woman with relapsed multiple myeloma of IgA kappa type. She is currently receiving daratumumab and dexamethasone, her Velcade has been discontinued secondary to worsening symptoms. She has done better off the Velcade, her peripheral edema is almost resolved, discomfort is improved, and is able to manage her pain currently with acetaminophen. She continues with persistent fatigue, weakness, would put her at a PPS of 60%. Palliative care continue provide support for pain and symptom management, anticipatory guidance, and advanced care planning. Recommendations/Counseling Done: 1. Depression. Patient does have long history of depression, currently on demi lopram 20 mg daily. We did discuss in addition to her fatigue, concerned about exacerbation of her depression. She has trialed increasing citalopram in the past, in response to "an event". We did discuss though what we would be looking for is patient's increased engagement in activities, better sense of wellbeing, and functional improvement versus just feeling "happy". Did agree looking at ways to incorporate CBT, encouraged to get out of the house 2 times a week, with car rides, encouraged to reach out and call her girlfriends 1-2 times a week, patient is quite isolated secondary to the pandemic, did offer medical palliative care marriage and family social worker for counseling as well at this point in time we will continue to think about increasing citalopram again, and trial some of the CBT interventions. 2. Fatigue. This is multifactorial, patient has not been taking her dexamethasone, call to Dr. Ortiz to clarify, patient is to be taking it weekly as part of her multiple myeloma treatment. She is having functional decline as well as cognitive, she is willing and open to trial physical therapy. Patient is [employer], message left for PCP to order from Dr. Denise Rebollar to [facility]. 3. Generalized weakness. Patient has had functional decline, now uses walker, is able to manage her ADLs. Patient is quite sedentary, and has had increased deconditioning. Counseling provided regarding ways to incorporate increase activity as well as improve endurance. We will also pursue PT. 4. Lower extremity edema. This appears to have resolved, is managed with the furosemide 20 mg daily, she is using compression socks and elevation of her legs. She does have pain in her left knee, instructed to support with pillow and "catch" position. 5. Leg pain. This is been improved off the Velcade, has transition to acetaminophen, still awakens though in pain though is consistent in her reporting. Encouraged to continue use oxycodone half to 1 tab at bedtime to augment sleep as well as awakening in pain/pain management. 6. Advanced care planning. Counseling provided regarding continuum of care, advanced care planning documents, clarifying goals. Patient is concerned is expecting her to return to previous level of functioning, counseling provided regarding new normal, grief and loss, and adapting to current situation. Particularly in the context of the pandemic. Time Spent: 60 minutes with greater than 50% of this done in counseling, review of depression, pain and symptom management, and anticipatory guidance regarding advance care planning and goals of care
== END 2020-07-24 13:01 | disposition home or self-care (01) ==
LOC: PC 13:00
PROVIDERS: ATTEND Nurse Practitioner Adult Health
DX: Z51.5 Encounter for palliative care (principal); F32.9 Major depressive disorder, single episode, unspecified; R53.83 Other fatigue; R53.1 Weakness; C90.00 Multiple myeloma not having achieved remission; M79.605 Pain in left leg; M79.604 Pain in right leg; G31.84 Mild cognitive impairment of uncertain or unknown etiology; I48.91 Unspecified atrial fibrillation; R60.0 Localized edema; Z79.01 Long term (current) use of anticoagulants; Z79.899 Other long term (current) drug therapy; Z79.52 Long term (current) use of systemic steroids; Z74.09 Other reduced mobility
CPT/HCPCS: 99350

== ENCOUNTER 2020-08-23 13:00 | Outpatient (CLI) | payer MEDICARE ==
--- NOTE | 2020-08-23 16:45 | CONSULTATION NOTE ---
Palliative Care Follow Up - Referral Referring Provider: Dr. Alberta Rebollar Time of Visit: [id number] Referral setting: Home Referral Reason: MM/CHF/Cardiomyopathy/Goals of Care - Information Sources Records reviewed: Previous records reviewed History/Review of Systems obtained from: Patient, Family (met with Randall) Exam limitations: Clinical condition (patient with mild STM deficits) - History of Present Illness Update Brief HPI Update: This is a 75-year-old woman with multiple myeloma, with concern for ongoing disease progression. She has been on daratumumab every 3 weeks, with dexamethasone 20 mg weekly. Her oncologist will be adding pomalidomide at 4 mg daily from day 1 to day 21, repeating every 28 days. She has felt quite symptomatic, and was quite anxious regarding her decline both cognitively and functionally over the last week prior to her treatment. She did receive a transfusion yesterday, with improvement of strength, clarity, and feeling better overall. Patient continues to have fairly high symptom burden, her leg pain has resolved, but continuing with tremors and shakiness, anorexia, and persistent fatigue.Both her and her continue to use struggle with the uncertainty, she does understand her multiple myeloma numbers have increased, and also she struggles with finding a balance with her CHF/cardiomyopathy. Past Medical History: A. fib, mastocytosis, mild cognitive decline, CHF, cardiomyopathy, hypothyroidism, chronic vision loss, chronic sinusitis, depression, osteoarthritis, persistent fatigue, chronic diarrhea. Social History - Living Situation Living arrangement: At home Living Situation: With spouse/s.o. Support System: Their lucrecia Randall, they have been quite isolated and somewhat overwhelmed by the restrictions of the pandemic. They have gotten their first shot, and are hoping with second shot to be able to feel more comfortable traveling. They have been unable to see her visit friends or family. Previously been very very active, they came to [facility] in 2006. They do have a son and a daughter who are both located in [place] as well as 2 granddaughters. Medications/Allergies - Medications Home Medications: Ambulatory Orders Medication Instructions Recorded Confirmed Ascorbic Acid [Vitamin C] 500 mg PO DAILY 12/27/12 08/24/20 Cetirizine HCl [Zyrtec] 10 mg PO DAILY 12/27/12 08/24/20 Cholecalciferol (Vitamin D3) 2,000 unit PO DAILY 12/27/12 08/24/20 [Vitamin D] Levothyroxine Sodium [Synthroid] 75 mcg PO DAILY 12/27/12 08/24/20 Montelukast Sodium [Singulair] 10 mg PO DAILY 12/27/12 08/24/20 Biotin 5,000 mg PO DAILY 01/05/13 08/24/20 Calcium Citrate 1,000 mg PO DAILY 01/05/13 08/24/20 Citalopram [CeleXA] 20 tab PO DAILY 07/10/15 08/24/20 Metoprolol Succinate [Toprol Xl] 100 tab PO BID 08/10/18 08/24/20 Loperamide [Imodium] 2 mg PO DAILY PRN 11/09/18 08/24/20 Furosemide [Lasix] 20 tab PO DAILY 02/28/20 08/24/20 Leothyronine 5 mcg PO DAILY 02/28/20 08/24/20 Acyclovir [Zovirax] 400 mg PO BID #180 tablet 04/11/20 08/24/20 Lidocaine/Prilocain 2.5% Cream 30 gm TOP DAILY PRN #1 tube 04/11/20 08/24/20 [Emla 2.5% Cream] Ondansetron HCl [Zofran] 4 mg PO TID PRN #30 tab 04/11/20 08/24/20 Prochlorperazine Maleate 10 mg PO Q6HR PRN #30 tab 04/11/20 08/24/20 [Compazine] Sulfamethoxazole/Trimethoprim 1 each PO DAILY #90 tablet 04/11/20 08/24/20 [Bactrim 400-80 mg Tablet] Flecainide [Tambocar] 100 mg PO BID 06/05/20 08/24/20 oxyCODONE/ACET 5/325 [Percocet 5 1 each PO Q4HR PRN 07/08/20 08/24/20 mg/325 mg] dexAMETHasone [Decadron] 4 mg PO 0800 #30 tablet 07/31/20 08/24/20 methylPREDNISolone [Medrol] 4 mg PO UD #20 tablet 07/31/20 08/24/20 Dabigatran Etexilate Mesylate 150 mg PO BID 08/24/20 08/24/20 [Pradaxa] - Allergies Allergies/Adverse Reactions: Allergies Allergy/AdvReac Type Severity Reaction Status Date / Time Fish Containing Products Allergy Severe Anaphylaxis Verified 08/21/20 09:23 Review of Systems - Constitutional Constitutional: reports: Fatigue (persistent; some improvement with transfusion yesterday), Weakness, Poor appetite, Weight loss. denies: Fever, Chills - Eyes Eyes: reports: Vision loss, Corrective lenses - Ears, Nose & Throat Ears, Nose & Throat: reports: Hearing loss, Nasal congestion, Dry mouth - Cardiovascular Cardiovascular: reports: Edema, Lightheadedness, Exertional dyspnea, Decr. exercise tolerance. denies: Chest pain - Respiratory Respiratory: reports: SOB at rest, SOB with exertion. denies: Cough - Gastrointestinal Gastrointestinal: reports: Diarrhea (improved has longstanding at baseline; uses immodium daily usualy 3 tabs), Early satiety. denies: Nausea, Reflux/heartburn - Genitourinary Genitourinary: reports: Frequency, Nocturia - Musculoskeletal Musculoskeletal: reports: Muscle aches, Stiffness, Limited range of motion, Muscle weakness, Joint pain (left knee), Assistive devices (using walker for ambulation) - Integumentary Integumentary: reports: Dryness - Neurological Neurological: reports: General weakness, Memory problems (worsening; deferes to often; offers up contradicting information at times; originally started with subdural hematoma; worsened last few months "chemo brain"), Abnormal gait - Psychiatric Psychiatric: reports: Depression, Anxiety - Endocrine Endocrine: reports: Hypothyroidism - Hematologic/Lymphatic Hematologic/Lymph: Anemia (worsening 8.0) - All Other Systems All Other Systems: reports: Reviewed and negative Physical Exam - Vital Signs Temperature: 96.9 C Pulse Rate: 66 Respiratory Rate: 18 O2 Saturation: 99 (ra @ rest) Blood Pressure: 116/64 - Physical Exam General Appearance: positive: No acute distress, Alert Eyes Bilateral: positive: Normal inspection ENT: positive: No signs of dehydration Neck: positive: Trachea midline Cardiovascular: positive: Irregularly irregular Respiratory: positive: No respiratory distress (but noted breathlessness with conversation), Diminished in bases. negative: Wheezes Abdomen: positive: Soft Skin: positive: Pallor, Dryness Extremities: positive: Pedal edema (appear improved), Other (persistent upper extremity tremors observed; reports when feeling poorly legs have tremors as well) Neurologic/Psychiatric: positive: Oriented x3, Mood/affect nml, Weakness, Flat affect, Other (mild word finding difficulties; noted STM deficits) Palliative Care - POLST Patient has POLST: No Pain: Pain improved, Location (legs) Tiredness/Fatigue: Moderate (4-6) Drowsiness/Sedation: Moderate (4-6) (finds self sleeping more) Nausea: Mild (1-3) Anorexia: Moderate (4-6), Weight loss Dyspnea: Mild (1-3) Depression: Mild (1-3) Anxiety: Mild (1-3) Feelings of wellbeing/Perceived Quality of Life: Good, Acceptable, Worsening Sleep: Variable sleep pattern Performance Status: Has been reports is very worried about her prior to the transfusion, was quite weak and shaky, spending most the time in recliner or bed. Patient is feeling little bit better today, was up and greeted me at the door, without her walker. She is complaining of increased tremors, feels like she is sleeping more during the day. She is able to manage her ADLs, but has less energy for household tasks or sustained activities - Palliative Care Discussion: Patient does feel like she is continued decline, both functionally, and cognitively. She is quite pragmatic, she worries about her not excepting of her status. She knows her multiple myeloma is still treatable, but feels like side effects have been impacting her quality of life, patient also has severe cardiomyopathy/CHF and aware this may impact her longevity as well. Had long discussion with patient and , regarding current coping and response to illness, support provided, as well as discussed priorities and end-of-life planning. Patient does express goals consistent with DN AR, will complete POLST with next visit. Also discussed plans and planning, as well as priorities for her bucket list. She very much wants to visit her family, feeling very isolated, and feels this would be a good pick me up for both of them. Results - Lab Results Lab results reviewed: Yes Impression and Recommendations - Palliative Care Impression: This is a 75-year-old woman with relapsed multiple myeloma of IgA kappa type, currently receiving daratumumab and dexamethasone, is scheduled to start Pomalidomide because of progression of disease. She also has a baseline CHF/cardiomyopathy, and CKD 3, currently her is controlled on furosemide 20 mg daily. Patient has continued with fairly high symptom burden, of persistent fatigue, anorexia, worsening tremors, insomnia, and generalized weakness. Palliative care continue provide support for symptom management, anticipatory guidance, and advanced care planning. Recommendations/Counseling Done: 1. Progression of multiple myeloma of IgA kappa type.Patient expressing reservations and concern about progression of disease, new therapy, continuing with high symptom burden. She was hoping to have an improvement off of Velcade, pain is improved as well as lower extremity, but no improvement in tremors or fatigue. Patient is start new medication, she is to get chemo teaching, addressed questions and concerns as able. 2. Tremors. Did follow-up with cardiology, looking to find if anything could be adjusted as far as medications, unfortunately patient had identified Flecainide is starting about the same time as tremors, but in follow-up has been on actually since 2019. Tremors had started about late fall, have a been worsening, did not improve with stopping of Velcade. Will follow up with oncology, regarding possibly dose adjusting Bactrim and evaluate response. 3. Persistent fatigue. This is multifactorial, she did get a bump with her transfusion, most likely also influenced by persistent depressive feelings as well. Encouraged on her up days, to engage in more activities, continue to improve and reach out for decreasing social isolation, as well as set priorities. 4. Short-term memory deficits. Patient has since her subdural hematoma several years ago had memory problems, these have been exacerbated over the last several months. Has been is quite concerned she is doing her own medications, would like to be more involved and understand better to avoid any mistakes. Did update medication list, patient did agree to allow him to participate. Counseling provided regarding need to partner in this stage they are in. 5. Advanced care planning. Discussion in the context of concern for patient's fluctuating status, both her and her had questions around end-of-life planning, as well as advanced care planning documents. Counseling provided as well as anticipatory guidance Time Spent: 60 minutes with greater than 50% of this done in counseling regarding advance care planning, symptom management, addressing concerns and questions regarding treatment and disease, as well as anticipatory guidance
== END 2020-08-23 13:01 | disposition home or self-care (01) ==
LOC: PC 13:00
PROVIDERS: ATTEND Nurse Practitioner Adult Health
DX: Z51.5 Encounter for palliative care (principal); C90.00 Multiple myeloma not having achieved remission; R25.1 Tremor, unspecified; T45.1X5A Adverse effect of antineoplastic and immunosuppressive drugs, initial encounter; R53.83 Other fatigue; R41.3 Other amnesia; I50.9 Heart failure, unspecified; N18.30 Chronic kidney disease, stage 3 unspecified
CPT/HCPCS: 99350

== ENCOUNTER 2020-09-14 12:04 | Emergency (ER) | payer MEDICARE ==
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
--- NOTE | 2020-09-14 12:58 | CT Report ---
PROCEDURE: HEAD WO INDICATIONS: head injury on pradaxa has headache TECHNIQUE: Noncontrast 4.5 mm thick angled axial sections acquired from the foramen magnum to the vertex. For r adiation dose reduction, the following was used: automated exposure control, adjustment of mA and/or kV according to patient size. COMPARISON: None. FINDINGS: Image quality: Excellent. CSF spaces: Basal cisterns are patent. No extra-axial fluid collections. Ventricles are normal in size and shape. Brain: There is acute right subdural hematoma with a maximum width of 5 mm extending from the anterio r anterior aspect of the right frontal lobe around the lateral margin of the brain to nearly the occi pital lobe. There is a small amount of blood along the anterior falx and a trace amount in the application integration engineer ior falx. There is slight effacement of sulci over the frontotemporal and parietal region, but no werner dence of subarachnoid hemorrhage. No intraventricular hemorrhage, subarachnoid, or intraparenchymal h emorrhage. No midline shift. Hummel-white matter interface is normal. Skull and face: There is no visible acute fracture at the point of impact over the left orbit. There are frontal and parietal right-sided julio c holes from a remote spontaneous subdural hemorrhage (per r eport). Sinuses: Visualized sinuses and mastoids are clear. IMPRESSION: 1. Small acute right subdural hematoma with mild sulcal effacement but no evidence of significant mas s effect or midline shift. 2. No intraventricular, subarachnoid, or intraparenchymal hemorrhage. 3. No visible fractures. 4. Discussed with Dr. Mitchell in the room at 1154 hours [place] standard time. Reviewed by: Sissy Fan MD on 09/14/2020 11:56 AM [place] Approved by: Sissy Fan MD on 09/14/2020 11:56 AM [place] Station ID: [id number]
[2020-09-14 13:30] LABS: BASOPHILS % (AUTO) 0.1 %; EOSINOPHILS % (AUTO) 0.1 %; HGB - HEMOGLOBIN 7.9 g/dL (12.0-16.0); LYMPHOCYTES # (AUTO) 0.5 10^3/uL (1.5-3.5); LYMPHOCYTES % (AUTO) 5.2 %; MEAN CORPUSCULAR HEMOGLOBIN 28.4 pg (27.0-31.0); MEAN CORPUSCULAR VOLUME 94.6 fL (81.0-99.0); MEAN PLATELET VOLUME 12.6 fL (7.9-10.8); MONOCYTES # (AUTO) 0.6 10^3/uL (0.0-1.0); MONOCYTES % (AUTO) 6.4 %; NEUTROPHILS # (AUTO) 7.2 10^3/uL (1.5-6.6); NEUTROPHILS % (AUTO) 82.9 %; PLT - PLATELET COUNT 103 10^3/uL (130-450); RED BLOOD COUNT 2.78 10^6/uL (4.20-5.40); RED CELL DISTRIBUTION WIDTH 19.1 % (12.0-15.0); WHITE BLOOD COUNT 8.6 x10^3/uL (4.8-10.8)
[2020-09-14 13:35] LABS: INR 1.6 (0.8-1.2); PT - PROTHROMBIN TIME 17.6 secs (9.9-12.6)
[2020-09-14 13:42] LABS: ALBUMIN 3.1 g/dL (3.2-5.5); BILIRUBIN,TOTAL 0.5 mg/dL (0.2-1.0); CALCIUM 9.3 mg/dL (8.5-10.3); CREATININE 1.6 mg/dL (0.4-1.0); PARTIAL THROMBOPLASTIN TIME 55.9 secs (24.9-33.3); TOTAL PROTEIN 6.1 g/dL (6.7-8.2)
[2020-09-14 14:02] LABS: RBC MORPHOLOGY (MULTIPLE) 4+ ANISOCYTOSIS (NORMAL)
[2020-09-14 14:28] LABS: C. PNEUMONIAE- RESP PCR PANEL NOT DETECTED
[2020-09-14 16:02] VITALS: BP 114/49
== END 2020-09-14 16:07 | disposition short-term general hospital (02) ==
LOC: ED 12:04
DX: S06.5X0A Traumatic subdural hemorrhage without loss of consciousness, initial encounter (principal); W01.198A Fall on same level from slipping, tripping and stumbling with subsequent striking against other object, initial encounter; Y92.009 Unspecified place in unspecified non-institutional (private) residence as the place of occurrence of the external cause; I48.91 Unspecified atrial fibrillation; Z79.01 Long term (current) use of anticoagulants; Z85.79 Personal history of other malignant neoplasms of lymphoid, hematopoietic and related tissues; Z20.822 Contact with and (suspected) exposure to COVID-19
CPT/HCPCS: 0202U; 36415; 80053; 83690; 85025; 85610; 85730; 96374; 99284